=== PATIENT | female | born 1965 | race Caucasian/White ===

== ENCOUNTER 2017-09-22 18:12 | Emergency (ER) | payer BC ==
[2017-09-22] MEDS ORDERED: NS 0.9% 1000 ML* 1,000 ML IV ONE (20:13)
[2017-09-22 20:17] LABS: ABS Basophils 0.1 10^3/ul (0-0.2); ABS Eosinophils 0 10^3/ul (0-0.6); ABS Lymphocytes 1.1 10^3/ul (1.0-4.8); ABS Monocytes 1.4 10^3/ul (0-0.8); ABS Neutrophils 8.5 10^3/ul (1.5-7.7); ABS Nucleated RBC 0.1 10^3/ul; Eosinophil % 0.3 % (0-6); Hematocrit 44 % (35-47); Lymphocyte % 10.2 % (25-47); Mean Corpuscular HGB Conc 35 g/dl (31-36); Mean Corpuscular Hemoglobin 27 pg (27-31); Mean Corpuscular Volume 79 fL (80-97); Mean Platelet Volume 7.2 um3 (7.4-10.4); Nucleated Red Blood Cells % 0.5; Platelet Count 232 10^3/ul (150-450); Red Blood Count 5.48 10^6/ul (4.00-5.40); Red Cell Distribution Width 17 % (10.5-15); White Blood Count 11.1 10^3/ul (3.5-10.8)
--- NOTE | 2017-09-22 20:28 | ED ---
GI/ HPI - HPI Summary HPI Summary: 52-year-old female with diarrhea for the past 3 days. She denies any bowel pain. He states he has loose watery stool. Denies any blood in the stools. No recent antibiotic use. No nausea and no vomiting. No history of diverticulitis. No one else sick. She did not eat anything different. She admits to fevers. She took some Tylenol at urgent care. Never had this before. No recent travel or exposures to contaminated water. No pain with urination. No frequency urgency. She admits to decreased appetite. She has no medical conditions. She has had her gallbladder removed. - History of Current Complaint Chief Complaint: EDGeneral Time Seen by Provider: 09/22/17 20:12 Stated Complaint: DIARRHEA/FEVER Pain Intensity: 0 - Allergy/Home Medications Allergies/Adverse Reactions: Allergies Allergy/AdvReac Type Severity Reaction Status Date / Time Penicillins Allergy Shortness Verified 09/22/17 18:18 of Breath PMH/Surg Hx/FS Hx/Imm Hx Endocrine/Hematology History: Denies: Hx Anticoagulant Therapy Cardiovascular History: Denies: Hx Myocardial Infarction Infectious Disease History: No Infectious Disease History: Denies: Traveled Outside the [place] in Last 30 Days - Family History Known Family History: Positive: Other - no fam hx of GI - Social History Alcohol Use: Occasionally Substance Use Type: Reports: None Review of Systems Negative: Fever Negative: Chest Pain Negative: Shortness Of Breath Positive: Diarrhea. Negative: Abdominal Pain, Vomiting, Nausea All Other Systems Reviewed And Are Negative: Yes Physical Exam Triage Information Reviewed: Yes Vital Signs On Initial Exam: Initial Vitals Temp Pulse Resp BP Pulse Ox 100.1 F 103 18 148/76 94 09/22/17 18:14 09/22/17 18:14 09/22/17 18:14 09/22/17 18:14 09/22/17 18:14 Vital Signs Reviewed: Yes Appearance: Positive: Well-Appearing Skin: Positive: Warm, Dry Head/Face: Positive: Normal Head/Face Inspection Eyes: Positive: Normal, Conjunctiva Clear ENT: Positive: Pharynx normal Respiratory/Lung Sounds: Positive: Clear to Auscultation, Breath Sounds Present Cardiovascular: Positive: Normal, RRR Abdomen Description: Positive: Nontender, Soft Bowel Sounds: Positive: Present Musculoskeletal: Positive: Normal Neurological: Positive: Normal Psychiatric: Positive: Normal Diagnostics - Vital Signs Vital Signs Temp Pulse Resp BP Pulse Ox 09/22/17 18:14 100.1 F 103 18 148/76 94 - Laboratory Lab Results: Lab Results 09/22/17 Range/Units 20:06 WBC 11.1 H (3.5-10.8) 10^3/ul RBC 5.48 H (4.00-5.40) 10^6/ul Hgb 15.0 (12.0-16.0) g/dl Hct 44 (35-47) % MCV 79 L (80-97) fL MCH 27 (27-31) pg MCHC 35 (31-36) g/dl RDW 17 H (10.5-15) % Plt Count 232 (150-450) 10^3/ul MPV 7.2 L (7.4-10.4) um3 Neut % (Auto) 76.8 (38-83) % Lymph % (Auto) 10.2 L (25-47) % Cochran % (Auto) 12.2 H (0-7) % Eos % (Auto) 0.3 (0-6) % Baso % (Auto) 0.5 (0-2) % Absolute Neuts (auto) 8.5 H (1.5-7.7) 10^3/ul Absolute Lymphs (auto) 1.1 (1.0-4.8) 10^3/ul Absolute Monos (auto) 1.4 H (0-0.8) 10^3/ul Absolute Eos (auto) 0 (0-0.6) 10^3/ul Absolute Basos (auto) 0.1 (0-0.2) 10^3/ul Absolute Nucleated RBC 0.1 10^3/ul Nucleated RBC % 0.5 Result Diagrams: 09/22/17 20:06 09/22/17 20:06 Lab Statement: Any lab studies that have been ordered have been reviewed, and results considered in the medical decision making process. - CT abd CT Interpretation: Positive (See Comments) - thickened cecum with mild surrounding inflammatory changes could represent colitis however mass cannot be excluded follow-up recommended CT Interpretation Completed By: Radiologist JANA Course/Dx - Course Course Of Treatment: 52-year-old female with diarrhea for the past 3 days. She denies any bowel pain. He states he has loose watery stool. Denies any blood in the stools. No recent antibiotic use. No nausea and no vomiting. No history of diverticulitis. No one else sick. She did not eat anything different. She admits to fevers. She took some Tylenol at urgent care. Never had this before. No recent travel or exposures to contaminated water. No pain with urination. No frequency urgency. She admits to decreased appetite. She has no medical conditions. She has had her gallbladder removed. On exam abdomen soft nontender. wbc 11.1. potassium 3.2. crp elevated at 119.57. urine shows uti. CT shows thickened cecum with mild surrounding inflammatory changes could represent colitis however mass cannot be excluded follow-up recommended. With white blood cell count will treat as a colitis with Flagyl and cipro which will also cover for potential uti. Will give follow-up with GI and stressed importance of follow up. Patient understands agrees with plan. - Diagnoses Differential Diagnoses - Female: Colitis, Diverticulitis, Urinary Tract Infection Provider Diagnoses: Colitis, UTI (urinary tract infection) Discharge - Sign-Out/Discharge Documenting (check all that apply): Patient Departure - Discharge Plan Condition: Good Disposition: HOME Prescriptions: Ciprofloxacin TAB* [Cipro 500 MG TAB*] 500 mg PO BID #19 tab metroNIDAZOLE [Flagyl 500 MG TAB] 500 mg PO TID #29 tab Patient Education Materials: Colitis (ED) Referrals: [facility] [Outside] Mannie Singh MD [Medical Doctor] - Additional Instructions: Take ciprofloxacin twice a day for 10 days, first dose given in ED Take Flagyl every 8 hours for 10 days, first dose given in ED Follow up with GI Establish care with primary Return to ED if develop any new or worsening symptoms - Billing Disposition and Condition Condition: GOOD Disposition: Home
[2017-09-22 20:31] LABS: EGFR Non-African American 104.2 (>60)
[2017-09-22 21:27] LABS: Urine Appearance Clear; Urine Blood Negative (Negative); Urine Color Yellow; Urine Ketones 1+ (Negative); Urine Protein Negative (Negative); Urine Red Blood Cell Trace(0-2/hpf) (Absent); Urine Urobilinogen Negative (Negative); Urine White Blood Cell Trace(0-5/hpf) (Absent)
[2017-09-22] MEDS ORDERED: Iohexol 300* (CONTRAST) 10 ML SDV IV ONE (21:32)
[2017-09-23] MEDS ORDERED: Ciprofloxacin TAB* 500 MG PO ONE (00:14)
[2017-09-23] MEDS ORDERED: metroNIDAZOLE TAB* 250 MG PO ONE (00:14)
[2017-09-23 00:40] VITALS: BP 121/74
--- NOTE | 2017-09-23 07:40 | RAD ---
Indication: Abdominal pain, diarrhea. Contrast: Administered 144.2 ml of Contrast -- mg/ml CT of the abdomen and pelvis was performed after oral and IV contrast administration. Coronal and sagittal reconstructed images were obtained. The lung bases demonstrate no pleural fluid, nodules or masses. Heart is of normal size without evidence of pericardial effusion. The liver is normal in size. No focal lesions or intrahepatic duct dilatation is noted. The spleen is normal in size. The pancreas demonstrates no mass or pancreatic duct dilatation. The common duct is not dilated. Patient is status post cholecystectomy. The left adrenal gland demonstrates a nodule in the left adrenal gland measuring 1.5 cm. The small size of this lesion suggests that this likely represents an adenoma although nonspecific on this study. The kidneys and ureters demonstrate no hydronephrosis. There is a subcentimeter cortical cyst in the upper pole of the left kidney. No retroperitoneal lymphadenopathy is noted. No retroperitoneal lymphadenopathy is noted. No dilated loops of bowel are noted. CT of the pelvis demonstrates uterus and ovaries to be unremarkable. The urinary bladder is unremarkable. The uterus and ovaries are grossly unremarkable. There is wall thickening of the distal ileum with thickened mucosa of the ascending colon up to the hepatic flexure. There is there is some induration of pericolonic fat as well as some mesenteric lymph nodes. This likely represents colitis and follow-up exam is suggested. The appendix is visualized and is normal. The bones and joints are grossly unremarkable aside from mild degenerative disc disease. IMPRESSION: Underlying mucosal thickening of the hepatic flexure and ascending colon suggestive of colitis. A small amount of pericolonic infiltration of fat and inflammatory changes as well as mesenteric lymph nodes are noted. Normal appendix is noted. Left adrenal nodule measuring up to 1.5 cm which is nonspecific. Due to size is likely represents an adenoma further workup if clinically indicated is suggested.
== END 2017-09-23 00:39 | disposition home or self-care (01) ==
LOC: ED 18:12
DX: K52.9 Noninfective gastroenteritis and colitis, unspecified (principal); N39.0 Urinary tract infection, site not specified; Z88.0 Allergy status to penicillin
CPT/HCPCS: 36415; 74177; 80053; 81003; 81015; 83605; 83690; 85025; 86140; 87040; 87086; 96360; 96361; 99283; A9270-GY; Q9967

== ENCOUNTER 2019-03-27 12:48 | Inpatient (IN) | payer BC ==
[2019-03-27] MEDS ORDERED: diPHENhydraMINE IV* 50 MG/ML 1 ml VIAL (BENADRYL) IV ONE (13:34)
[2019-03-27] MEDS ORDERED: NS 0.9% 1000 ML** 1,000 ML IV ONE (13:34)
[2019-03-27] MEDS ORDERED: PROCHLORPERAZINE INJ 5 MG/ML 2 ML VIAL IV ONE (13:35)
--- NOTE | 2019-03-27 13:36 | ED ---
Headache - HPI Summary HPI Summary: 53 y/o female presented to [facility] complaining of a ANGEL in the occipital region that woke her up while she was sleeping on the night of 03/25/19. Pt notes this ANGEL is abnormal. The pain was at its worst initially but has since improved. Pt is experiencing vision changes in which she sees "blocks" and colors, and feels like she is spinning upon moving her head. She is also having issues with depth perception intermittently. Pt enodrses balance issues due to her vision, but can stand normally and denies numbness, tingling, photophobia, sound sensitivity , and neck stiffness. She took Mucinex recently. Pt has no known Hx of HTN and is on no medications, and notes that she does not regularly see a doctor. Pt also notes her aunt had a brain aneurysm. Allergies noted. - History Of Current Complaint Chief Complaint: EDHeadache Stated Complaint: HEADACHE PER PT Time Seen by Provider: 03/27/19 13:21 Hx Obtained From: Patient, Family/Food Sanitarian - Initially Headache Was: Severe Currently Pain Is: Current Pain Scale(0-10)= - 2 Timing: Constant Location of Headache: Occipital Aggravating Factor: Nothing Allevating Factors: Nothing Associated Signs And Symptoms: Other (Noted In Comments) - vision changes (see HPI), issues with depth perception, balance issues - Allergies/Home Medications Allergies/Adverse Reactions: Allergies Allergy/AdvReac Type Severity Reaction Status Date / Time Penicillins Allergy Shortness Verified 03/27/19 16:23 of Breath PMH/Surg Hx/FS Hx/Imm Hx Endocrine/Hematology History: Denies: Hx Anticoagulant Therapy, Hx Diabetes Cardiovascular History: Denies: Hx Hypertension, Hx Myocardial Infarction - Surgical History Surgery Procedure, Year, and Place: CHOLECYSTECTOMY - Immunization History Immunizations Up to Date: Yes Infectious Disease History: No Infectious Disease History: Denies: Traveled Outside the [place] in Last 30 Days - Family History Known Family History: Positive: Other - no fam hx of GI - Social History Alcohol Use: None Substance Use Type: Reports: None Smoking Status (MU): Never Smoked Tobacco Review of Systems Negative: Photophobia Positive: Other - negative sensitivity to sound Positive: Other - negative neck stiffness Neurological: Other - vision changes, see HPI Positive: Headache. Negative: Paresthesia, Numbness All Other Systems Reviewed And Are Negative: Yes Physical Exam - Summary Physical Exam Summary: Constitutional: Well-developed, Well-nourished, Alert. (-) Distressed Skin: Warm, Dry HENT: Normocephalic; Atraumatic Eyes: Conjunctiva normal Neck: Musculoskeletal ROM normal neck. (-) JVD, (-) Stridor, (-) Tracheal deviation Cardio: Rhythm regular, rate normal, Heart sounds normal; Intact distal pulses. Radial pulses are 2+ and symmetric. (-) Murmur Pulmonary/Chest wall: Effort normal. (-) Respiratory distress, (-) Wheezes, (-) Rales Abd: Soft. (-) Tenderness, (-) Distension, (-) Guarding, (-) Rebound Musculoskeletal: (-) Edema Lymph: (-) Cervical adenopathy Neuro: Alert, Oriented x3, Strength normal, Cranial nerves II-XII are grossly intact. (-) Dysmetria, (-) Nystagmus, (-) Ataxia by finger to nose testing, (-) Sensory deficit. LLQ visual field deficit. NIH scale 1. GCS 15. Psych: Mood and affect Normal Triage Information Reviewed: Yes Vital Signs On Initial Exam: Initial Vitals Temp Pulse Resp BP Pulse Ox 97.3 F 97 18 170/96 100 03/27/19 12:50 03/27/19 12:50 03/27/19 12:50 03/27/19 12:50 03/27/19 12:50 Vital Signs Reviewed: Yes Procedures - Sedation Patient Received Moderate/Deep Sedation with Procedure: No Diagnostics - Vital Signs Vital Signs Temp Pulse Resp BP Pulse Ox 03/27/19 12:50 97.3 F 97 18 170/96 100 - Laboratory Result Diagrams: 03/27/19 13:50 03/27/19 13:50 Lab Statement: Any lab studies that have been ordered have been reviewed, and results considered in the medical decision making process. - Radiology cxr Radiology Interpretation Completed By: Radiologist Summary of Radiographic Findings: IMPRESSION: No acute cardiopulmonary process by radiograph. The ED physician has reviewed this report. - CT head CT Interpretation Completed By: Radiologist Summary of CT Findings: IMPRESSION: 1. No acute intracranial abnormality by CT. 2. 1.3 x 0.9 cm calcified meningioma versus dural calcification along the anterior falx. cerebri. Could be further characterized by brain MRI with contrast on an elective basis. This report was reviewed by the ED physician. Re-Evaluation - Re-Evaluation First Eval Re-Evaluation Time: 15:06 Comment: ANGEL is gone and visual field defect has improved. Headache Course/Dx - Course Course Of Treatment: Patient is here with headache and visual symptoms. Patient has no diagnosed medical problems but does not go to the doctor regularly. Patient was found to have a glucose in the 300s and likely has undiagnosed diabetes. Patient had bilateral left lower quadrant visual field defects upon arrival. Patient had a CT scan which showed a small meningioma at the anterior falx cerebri. Patient was given IV fluids, comes in, Benadryl with improvement in her headache and resolution of her visual field defect. Neurology was called and they're concerned about TIA. Patient was admitted to the hospitalist - Diagnoses Provider Diagnoses: TIA (transient ischemic attack), Headache, Visual field defect - Physician Notifications Discussed Care Of Patient With: Delfino Ba Time Discussed With Above Provider: 15:15 Instructed by Provider To: Other - Pt case was discussed with Dr. Ba, who recommends admission to [facility] and workup for TIA. At 1534 pt case was discussed with Dr. Hanson, who accepts the pt. Discharge ED - Sign-Out/Discharge Documenting (check all that apply): Patient Departure - admit - Discharge Plan Condition: Stable Disposition: ADMITTED TO [facility] - Billing Disposition and Condition Condition: STABLE Disposition: Admitted to [facility] - Attestation Statements Document Initiated by Prasad: Yes Documenting Scribe: Jeromy Matos Provider For Whom Prasad is Documenting (Include Credential): Madhu Willard MD Scribe Attestation: Jeromy Roth scribed for Madhu Willard MD on 03/27/19 at 1720. Scribe Documentation Reviewed: Yes Provider Attestation: The documentation as recorded by the Jreomy coello accurately reflects the service I personally performed and the decisions made by me, Madhu Willard MD Status of Scribe Document: Viewed
[2019-03-27 14:05] LABS: ABS Basophils 0.1 10^3/ul (0-0.2); ABS Eosinophils 0.1 10^3/ul (0-0.6); ABS Lymphocytes 1.4 10^3/ul (1.0-4.8); ABS Monocytes 0.7 10^3/ul (0-0.8); ABS Neutrophils 7.1 10^3/ul (1.5-7.7); Eosinophil % 0.7 %; Hematocrit 47 % (35-47); Hemoglobin 16.1 g/dL (12.0-16.0); Lymphocyte % 14.8 %; Mean Corpuscular HGB Conc 34 g/dL (31-36); Mean Corpuscular Hemoglobin 28 pg (27-31); Mean Corpuscular Volume 80 fL (80-97); Mean Platelet Volume 7.6 fL (7.4-10.4); Nucleated Red Blood Cells % 0.3; Platelet Count 240 10^3/uL (150-450); Red Blood Count 5.85 10^6 /uL (3.70-4.87); Red Cell Distribution Width 17 % (10-15); White Blood Count 9.2 10^3/uL (3.5-10.8)
[2019-03-27 14:21] LABS: Albumin 4.1 g/dL (3.2-5.2); Albumin/Globulin Ratio 1.4 (1-3); BUN/Creatinine Ratio 17.2 (8-20); Calcium 8.9 mg/dL (8.6-10.3); EGFR African American 130.6 (>60); EGFR Non-African American 107.9 (>60); Potassium 3.6 mmol/L (3.5-5.0); Total Bilirubin 0.7 mg/dL (0.2-1.0); Total Protein 7.1 g/dL (6.4-8.9)
[2019-03-27] MEDS ORDERED: Aspirin 81 mg CHEW TAB* 81 MG TAB.CHEW PO ONE (15:21)
[2019-03-27] MEDS ORDERED: Clopidogrel TAB* 75 MG PO ONE (15:21)
[2019-03-27] MEDS ORDERED: Iohexol 350* (CONTRAST) 500 ML MDV IV ONE (15:26)
[2019-03-27] MEDS ORDERED: Dextrose 50% Syringe 50 ML* 25 GM/50 ML SYRINGE IV PUSH PRN (15:39)
[2019-03-27 15:41] LABS: HDL Cholesterol 40.5 mg/dL
[2019-03-27] MEDS ORDERED: Ondansetron INJ* 2 MG/ML VIAL IV PRN (16:03)
[2019-03-27] MEDS ORDERED: Atorvastatin* 40 MG TAB PO ONE (16:18)
[2019-03-27 16:21] LABS: Erythrocyte Sed Rate 8 mm/Hr (0-29)
[2019-03-27] MEDS: Insulin LISPRO* 1 UNITS UNIT SUBCUT SCH (17:38)
[2019-03-27] MEDS: Enoxaparin(*) 40 MG/0.4 ML SYR SUBCUT SCH (17:39)
[2019-03-27] MEDS: Atorvastatin* 40 MG TAB PO SCH (17:42)
--- NOTE | 2019-03-27 17:47 | HP ---
ADMISSION HISTORY AND PHYSICAL: DATE OF ADMISSION: 03/27/19 - ROOM #441 PRIMARY CARE PROVIDER: None. PROVIDER: Samm Lorenzo NP. ATTENDING PHYSICIAN: Dr. Hanson.* (DICTATED BY SAMM LORENZO NP) OTHER PROVIDER: Dr. Ba. CHIEF COMPLAINT: Headache. HISTORY OF PRESENT ILLNESS: This is a 53-year-old female with no significant past medical history, who came to the emergency room on 03/27/19 for a several- day history of pain to the back of her head, which is described as intermittent dull ache. With the pain, she sees black floaters in both eyes and her depth of perception is off. Turning her head causes her to feel dizzy. All of these symptoms are resolved when her pain eases; however, coughing also makes the pain hurt worse. She also reports having slept in her recliner for the past few months because she becomes short of breath while lying flat. The patient has no seen a doctor in a number of years. The hospitalists were asked to evaluate the patient for admission. At the time of evaluation, the patient was uncomfortable in the bed. I assisted her with moving to a chair and the transfer did not cause her to become anymore dizzy or lightheaded. She was uncomfortable from having just recently received IV Benadryl, stating she felt loopy and uncomfortable. PAST MEDICAL HISTORY: Left adrenal adenoma, which was detected on a CT scan in 2018 ED visit. PAST SURGICAL HISTORY: Cholecystectomy in 1989. HOME MEDICATIONS: None. ALLERGIES: PENICILLIN. FAMILY HISTORY: Mother and brothers have diabetes type 2. Father had colon cancer. Aunt had an aneurysm. SOCIAL HISTORY: Denies any tobacco, EtOH, or recreational substance use. Does not work. Is and has no children. REVIEW OF SYSTEMS: It was positive for stress, frequent urination without burning or pressure. Denied any fever, chills, chest pain, edema, coughing, nausea, vomiting, diarrhea, or abdominal pain. It was positive for pain in the back of her head. Denied any current dizziness or alterations in depth perception. Denied any dysphagia, arthralgias, myalgias, rashes, or anxiety. PHYSICAL EXAMINATION GENERAL: This is a well-developed, obese woman seen sitting up in the chair, in mild distress. VITAL SIGNS: 97.3 Fahrenheit, 94 pulse, 100% oxygen on room air, 20 resps, 146/ 75 blood pressure. HEENT: Conjunctivae pink and moist. PERRLA. EOMs intact. Mucous membranes dry. Oropharynx clear. NECK: Supple. No cervical or supraclavicular lymphadenopathy noted. RESPIRATORY: Lung sounds clear throughout bilaterally, diminished in the bases on room air. No accessory muscle use noted. CARDIAC: S1, S2 present. Heart rate regular. No murmurs, gallops, or rubs appreciated. No carotid bruit. No lower extremity edema. ABDOMEN: Large, soft, nontender, nondistended with positive bowel sounds. MUSCULOSKELETAL: No clubbing or cyanosis of the digits. Full range of motion. NEURO: Tongue midline. Smile symmetrical. No focal deficits appreciated. Sensation intact to light touch. PSYCH: She is alert and oriented x3. No overt anxiety or depression noted. SKIN: No rashes or open areas appreciated. DIAGNOSTIC STUDIES/LAB DATA: Pertinent lab data: RBC 5.85, hemoglobin 16.1. Sodium 133, chloride 98, glucose 327. Hemoglobin A1c 12.1. Triglycerides are 195, cholesterol 176, LDL cholesterol 97, HDL cholesterol 40.5. Diagnostic studies: Chest x-ray showed no acute cardiopulmonary process. Brain CT showed no acute intracranial abnormality. Also showed a 1.3 x 0.9 cm calcified meningioma versus dural calcification along the anterior falx cerebri , could be either characterized by a brain MRI without contrast on an elective basis. Awaiting results of head CTA and brain MRI. ASSESSMENT AND PLAN: My impression is that this is a 53-year-old female with no previous past medical history, who came to the emergency room on 03/27/19 for headache, possible transient ischemic attack and newly diagnosed diabetes type 2, hypertension, hyperlipidemia. 1. Headaches. Due to the intermittent nature of the symptoms with the lack of any other accompanying neurological deficit corroborated by a negative CT scan, I doubt that the patient has had a stroke or a transient ischemic attack. Have Dr. Ba consulted. We are awaiting results of the head CTA and brain MRI. It is likely that her symptoms could be correlated to high blood pressure that has up until now been undiagnosed; however, until all imaging returns, I will allow for some permissive hypertension. The patient will receive aspirin and Plavix. She did receive a liter of fluid in the emergency room. 2. Diabetes type 2. Hemoglobin A1c was 12.1%. We will perform blood glucose monitoring a.c. with sliding scale lispro. Starting the patient on Lantus 10 units. Likely, we will need to titrate up as recommended starting dose target is 56 units. Will require repeated education. Recommend that she follow up with [facility] upon discharge and we recommend consulting Dr. Fitzgerald tomorrow. 3. Hypertension. Arrival blood pressures were about 170s systolically, which has decreased to 146/75 without any intervention. We will allow for permissive hypertension through tonight and start the patient on lisinopril 5 mg p.o. in the a.m. as it is kidney protective. 4. Hyperlipidemia. This is newly diagnosed upon this admission. Target LDL is below 70; however, she is at 97. Started her on 40 mg of atorvastatin. Educated her about the possibility of myalgias and to report them if they do arise. 5. DVT prophylaxis: Initiate Lovenox. 6. Code status is full code. 7. Disposition is to admit OBV to [address] [place] [address]. Condition is guarded. TIME SPENT: Time spent on the patient is about 60 minutes with half of that spent [id number]. Case was reviewed by my attending and they agree with the plan of care. SAMM LORENZO, KAMILA [id number]/CPS #: [id number] CELSO
[2019-03-27] MEDS ORDERED: Insulin GLARGINE(*) 1 UNITS UNIT SUBCUT SCH ×2 (21:00)
[2019-03-28 06:07] LABS: ABS Monocytes 0.6 10^3/ul (0-0.8); ABS Neutrophils 7.1 10^3/ul (1.5-7.7); Eosinophil % 0.5 %; Hematocrit 46 % (35-47); Hemoglobin 15.8 g/dL (12.0-16.0); Lymphocyte % 11.5 %; Mean Corpuscular HGB Conc 34 g/dL (31-36); Mean Corpuscular Hemoglobin 28 pg (27-31); Mean Corpuscular Volume 81 fL (80-97); Mean Platelet Volume 7.3 fL (7.4-10.4); Nucleated Red Blood Cells % 0.2; Platelet Count 231 10^3/uL (150-450); Red Blood Count 5.71 10^6 /uL (3.70-4.87); Red Cell Distribution Width 17 % (10-15); White Blood Count 8.8 10^3/uL (3.5-10.8)
[2019-03-28 06:27] LABS: Calcium 8.7 mg/dL (8.6-10.3); EGFR Non-African American 128.1 (>60); Potassium 3.8 mmol/L (3.5-5.0)
[2019-03-28] MEDS: Insulin LISPRO* 1 UNITS UNIT SUBCUT SCH ×3 (08:45→17:32)
[2019-03-28] MEDS: Aspirin 81 mg CHEW TAB* 81 MG TAB.CHEW PO SCH (08:45)
[2019-03-28] MEDS ORDERED: Lisinopril TAB* 5 MG PO SCH (09:00)
--- NOTE | 2019-03-28 10:57 | ECHO ---
*[facility]* [place] [address] Fax #: [phone] Transthoracic Echocardiogram Patient: Brittany Toussaint : 1965 Study Date: 03/28/2019 Age: 53 Gender: F HR: 99 bpm Height: 66 in /167.6 cm BSA: 2.2 m^2 Weight: 249.5 lb /113.4 kg BMI: 40.4 kg/m^2 *Ski Patrol Director: * Jossie Chen [facility] *Referring Physician: * Madhu Willard *Reading Physician: * He Jain MD Indications: TIA. History: Risk factors: Hypertension. Obese. Dyslipidemia. Conclusions Summary: - Left ventricle: Systolic function is normal. The estimated ejection fraction is 60-65%. Wall motion is normal; there are no regional wall motion abnormalities. - Atrial septum: A patent foramen ovale cannot be excluded. A PFO is not demonstrated by color Doppler. - Mitral valve: There is no significant regurgitation. - Tricuspid valve: There is no significant regurgitation. - Pericardium, extracardiac: There is no significant pericardial effusion. - Pulmonary arteries: Systolic pressure can not be accurately estimated. - Study data: No prior study is available for comparison. - Technical notes: 1.1 cm x 2.0 cm echodensity with anechoic rim measured in subcostal 4C view tapan in liver. [facility] imaging recommemded Study data: Transthoracic echocardiogram. Procedure: Transthoracic echocardiography was performed. Image quality was fair. The study was technically limited due to restricted patient mobility. A bubble study was performed. Complete 2D, spectral Doppler, and color flow Doppler. Location: Bedside. Patient status: Inpatient. Patient room number: 441-02. No prior study is available for comparison. Rhythm: Normal sinus rhythm. Findings Left ventricle: The cavity size is normal. Wall thickness is mildly increased. Systolic function is normal. The estimated ejection fraction is 60-65%. Wall motion is normal; there are no regional wall motion abnormalities. Doppler parameters are consistent with abnormal left ventricular relaxation (grade 1 diastolic dysfunction). Right ventricle: The cavity size is mildly to moderately dilated. Wall thickness is mildly increased. Systolic function is normal. Left atrium: The atrium is normal in size. Right atrium: The atrium is normal in size. Atrial septum: A patent foramen ovale cannot be excluded. Due to suboptimal 2D imaging. A PFO is not demonstrated by color Doppler. Bubble study images 95 and 96. Mitral valve: The leaflets are mildly thickened. There is no evidence of stenosis. There is no significant regurgitation. Aortic valve: The valve is trileaflet. The leaflets are normal thickness. There is no evidence of stenosis. There is no significant regurgitation. Tricuspid valve: The leaflets are normal thickness. There is no evidence of stenosis. There is no significant regurgitation. Pulmonic valve: Not well visualized. The leaflets are normal thickness. There is no evidence of stenosis. There is no significant regurgitation. Aorta: Aortic root: The aortic root is appears normal. Ascending aorta: The ascending aorta is appears normal. Aortic arch: The aortic arch is appears normal. Pericardium: A prominent pericardial fat pad is present. There is no significant pericardial effusion. Pulmonary arteries: The main pulmonary artery is normal-sized. Systolic pressure can not be accurately estimated. Systemic veins: Inferior vena cava: The vessel is normal in size. There is (< 50%) respiratory change in the IVC dimension. Measurements Left ventricle Value Ref Right atrium continued Value Ref JULIO, LAX 4.0 cm 3.8 - 5.2 ML dim, ES, A4C 3.2 cm 2.6 - 4.4 ESD, LAX 2.3 cm 2.2 - 3.5 Estimated RAP 8 mm Hg --------- FS, LAX 42 % 27 - 45 PW, ED, LAX (H) 1.1 cm 0.6 - 0.9 Aortic valve Value Ref FS 42 % 27 - 45 Felipe diam, ED 2.1 cm --------- PW, ED (H) 1.1 cm 0.6 - 0.9 Peak v, S 1.23 m/sec --------- E', lat felipe, TDI (L) 6.3 cm/sec >=10.0 VTI, S 21.0 cm -- ------- E/e', lat felipe, 10 Mean grad, S 3.0 mm Hg ----- ---- TDI Peak grad, S 6.0 mm Hg --------- E', med felipe, TDI 9.0 cm/sec >=7.0 LVOT/AV, VTI ratio 0.9 -- ------- E/e', med felipe, 7 TDI Mitral valve Value Ref E', avg, TDI 7.7 cm/sec Peak E 0.64 m/sec ----- ---- E/e', avg, TDI 8 <=14 Peak A 0.78 m/sec -- ------- Decel time 232 ms --------- LVOT Value Ref Peak E/A ratio 0.8 --------- Peak mayela, S 1.02 m/sec VTI, S 19.0 cm Pulmonic valve Value Ref Mean grad, S 3 mm Hg Peak v, S 1.32 m/sec --------- Peak grad, S 7.0 mm Hg --------- Ventricular septum Value Ref IVS, ED (H) 1.1 cm 0.6 - 0.9 Aortic root Value Ref Root diam 3.3 cm <4.3 Right ventricle Value Ref AW thickness, ED (H) 0.6 cm 0.1 - 0.5 Ascending aorta Value Ref JULIO, LAX 3.2 cm AAo AP diam, S 3.1 cm --------- JULIO minor ax, (H) 4.1 cm 1.9 - 3.5 A4C mid Aortic arch Value Ref Arch diam 3.1 cm --------- Left atrium Value Ref AP dim, ES 3.20 cm 2.70 - Decending aorta Value Ref 3.80 Reinaldo peak mayela 0.84 m/sec --------- ML dim, A4C 3.6 cm SI dim, A4C 4.7 cm Inferior vena cava Value Ref Vol/bsa, ES, 1-p 18 ml/m^2 11 - 40 Diam 1.7 cm --------- A4C Vol/bsa, ES, A/L 25 ml/m^2 16 - 34 Right atrium Value Ref SI dim, ES 4.7 cm 3.4 - 5.3 Legend: (L) and (H) isaac values outside specified reference range. Prepared and electronically signed by He Jain MD 03/28/2019 10:57
[2019-03-28 13:16] LABS: C Reactive Protein 18.68 mg/L (<8.01)
[2019-03-28 14:56] LABS: Erythrocyte Sed Rate 8 mm/Hr (0-29)
--- NOTE | 2019-03-28 15:48 | CONS ---
CONSULTATION REPORT: DATE OF ADMISSION: 03/28/19 DATE OF CONSULT: PRIMARY CARE PROVIDER: None. ATTENDING PHYSICIAN WHILE IN THE HOSPITAL: Dr. Saurav Mir (report dictated by Yogesh Kaur NP). REASON FOR NEUROLOGICAL CONSULTATION: Evaluation of headaches. HISTORY OF PRESENT ILLNESS: Ms. Toussaint is a 53-year-old female patient with no previous past medical history presenting into the hospital and admitted to the hospitalist service with complaints of a headache. She states that about 2 to 3 days ago, she developed a sudden onset of a headache that is not the worst of her life, but it started mostly behind the right eye and she noted that if she put ice on that, it would go away. However, she noted that if she laid flat , the headache was much worse. She noted that if she coughed or sneezed or cried, the head was worse. She denied any associated light or sound sensitivity and she noted that the headache was intermittent in nature and it was described as a dull ache. She states that the headache was not getting any better and she was concerned. She also notes that more concerning was the fact that she was having trouble with depth perception. She notes that she would try to reach for something and would often reach beyond it, such as a cup or reaching for a hand towel. She noted that on Thursday night and was concerned because of these symptoms and the fact that she was having trouble with her vision, in the sense that she was seeing what she described as a spinning spot, sometimes centrally in her vision. She noted that at times things would be distorted in her vision, not double, but she described it as distortion and did not describe loss of vision and she is unsure if this was in one eye or in both eyes. She says that she does not really have a history of headaches, no history of migraines. She notes that the headaches at times will last up to several hours. She denied having any autonomic features with the headaches such as congestion, nasal congestion, or tearing through the same side as the headache. She denied having any trouble finding words. No weakness to the arm or face. No facial drooping. No weakness to the leg, and she said that she felt like things in the room where she was sitting would be moving because of her vision. She denied feeling dizzy or lightheaded. She was concerned because she was having headaches, which she normally does not have and also was concerned because of the trouble with depth perception. She notes by the time that she went to the ER the headache was gone, but she was still having significant trouble with depth perception. She went to the ER, was evaluated, there was concern given her symptoms and she was admitted to the hospitalist service and we were asked to evaluate and consult. PAST MEDICAL HISTORY: Past medical history was denied to me. PAST SURGICAL HISTORY: She has had a cholecystectomy laparoscopically. MEDICATIONS: Her home medications were denied. ALLERGIES: To medications include PENICILLIN. FAMILY HISTORY: Her mother was diabetic. Father had a history of colon cancer. There was a history of a brain tumor as well in her father. SOCIAL HISTORY: She does not smoke. She does not drink. She is . Surrogate decision maker is her . REVIEW OF SYSTEMS: There is no documented fever. She denied having any significant weight change. No double vision was reported. No ear discharge. No rhinorrhea. No sore throat. No thyroid enlargement. She denied having any chest pain. No nausea, no vomiting. No dysuria, no frequency. No seizure, no loss of conscious. Review of 14 systems completed, all others negative. PHYSICAL EXAM: Vital Signs: Blood pressure 150/77 with a pulse of 98, respirations 16, O2 saturation 95%, temperature 97.9. General: At this time, Ms. Toussaint is a 53-year-old female patient. She is sitting in the hospital recliner. She does not appear to be in any acute distress. HEENT: Head: Atraumatic and normocephalic. Eyes: EOMs are intact. Sclerae were anicteric and not pale. Neck was supple. Throat: Oral mucosa appeared to be moist. No oropharyngeal erythema. Heart: Sounds S1 and S2, regular rate and rhythm. No murmurs, rubs, or gallops. Lungs: Clear to auscultation bilaterally. No wheezes, rales, or rhonchi. Abdomen: Soft, flat, nontender. Bowel sounds are present. Extremities: She had no edema, no clubbing. Psych: Normal affect. Skin: Grossly intact with no lesions noted. Neurologic: She is awake, alert. She is oriented to place, time, and person. She is interactive. Normal affect. Her speech is fluent without paraphasic error. No dysarthria noted. Repetition intact. Cranial nerve I not tested. II and III: Pupils were equal and reactive to light. Visual lemos were intact by full confrontation. EOMs were intact without nystagmus. I did not appreciate any ptosis. I did not appreciate any gross papilledema. Cranial nerve V: Sensation was intact to light touch. She had good strength bilaterally. Cranial nerve VII: Face symmetric without weakness. Cranial nerve VIII: Hearing grossly intact to finger rub. Cranial nerves IX and X: Voice normal. Palate elevates symmetrically. Cranial nerve XI: She had 5/5 strength at the trapezius muscles bilaterally. Cranial XII: Tongue protrudes midline. No atrophy or fasciculations. On motor exam, she had good tone, normal bulk. No rigidity, no pronator drift was noted. She had 5/5 strength in the distal and proximal extremities, upper and lower. Coordination: Rapid alternative movements were intact. She did hand closing bilaterally which was good. Finger to nose was intact. There was some concern of dysmetria; however, on my exam, I did not appreciate this. Heel to benavides was intact as well. I did not appreciate any tremors noted. Reflexes were noted to be down throughout. Babinski was equivocal. Sensation was intact to light touch in all extremities. Her gait was slightly wide based. Romberg was negative. DIAGNOSTIC STUDIES/LAB DATA: Labs revealed WBC 8.8, RBC of 5.71, hemoglobin of 15.8, hematocrit of 46, platelet count 231. INR 1. Sodium 136, potassium 3.8, chloride 102, bicarb 26, BUN 6, creatinine of 0.5, glucose 276, A1c 12.1, calcium 8.7. AST 18, ALT 28, alk phos 91. BNP 30. Albumin is 4.1. LDL was 97. 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 There was no restricted diffusion to suggest acute infarct. Chest x-ray showed no acute cardiopulmonary process. Thoracic echo showed left ventricular systolic function of 60% to 65%. A PFO could not be excluded. A PFO was not demonstrated by color Doppler. 1.1 cm x 2 cm echodensity within an echo rim measured in the subcostal 4 C view, likely in liver, further imaging recommended. She did have a CTA of the head which revealed impression: No acute intracranial abnormality. No acute occlusive disease, severe stenosis or aneurysm of the head. No occlusive disease or severe stenosis of the neck. Anatomic variants as above. Atherosclerotic disease. She had a brain CT as well which revealed no acute intracranial abnormality, 1.3 x 0.9 calcified meningioma versus dural calcification along the anterior falx cerebri. It could be further characterized by brain MRI with contrast on an elective basis. Old medical records were reviewed. ASSESSMENT AND PLAN/RECOMMENDATIONS: A 53--year-old female patient coming in with complaints of a headache that was sudden in onset over the last 3 days intermittently. She came in last night because of having difficulty with depth perception. My recommendations at this point are: 1. Headache. I would recommend checking an ESR and CRP. I do note that the ESR was 8. I would check a CRP. In addition to this, I would recommend checking an MRV of the head. I did not appreciate any difficulties with dysmetria on exam when I evaluated her. I would like to rule out venous thrombus. I do not suspect that this is a migraine in nature. Etiology of the headache and her symptoms are unclear. I do note that on exam her tympanic membrane on the left side appear to be cloudy in nature. Could consider having ENT further evaluate. This certainly could contribute to some balance issues, but she is really not complaining of this at this point. I do not believe that she had a stroke at this point given the negative MRI. I would obtain MRV going forward and will have Dr. Mir also evaluate the patient as well. Her headache is now gone, and again on exam, her depth perception was improved. We will make further recommendations based on imaging and labs. 2. Diabetes. Defer management to primary team. 3. Elevated blood pressure. Defer management to primary team. 4. DVT prophylaxis. Defer to primary team. TIME SPENT: Time spent on the consult was 60 minutes, greater than half of the time spent [id number] with the patient obtaining my history and physical, other half of that time was spent going over plan of care with the patient and implementing plan of care. I did discuss the plan of care with Dr. Mir, who is in agreement. YOGESH KAUR, DIRECTOR OF COMMUNITY EDUCATION [id number]/[facility] #: [id number] CELSO
[2019-03-28] MEDS ORDERED: Atorvastatin* 40 MG TAB PO SCH (17:00)
--- NOTE | 2019-03-28 17:03 | PN ---
Subjective Date of Service: 03/28/19 Interval History: ANGEL improved but still having fleeting episodes of changes in vision described as "floating bright blocks" Feels sinus congestion No N/V, spinning No CP/SOB Objective Active Medications: Acetaminophen (Tylenol Tab*) 650 mg PO Q4H PRN PRN Reason: MILD PAIN or TEMP > 100.4 Aspirin (Aspirin 81 Mg Chew Tab*) 81 mg PO DAILY [facility] Last Admin: 03/28/19 08:45 Dose: 81 mg Atorvastatin Calcium (Lipitor*) 40 mg PO 1700 [facility] Last Admin: 03/27/19 17:42 Dose: Not Given Dextrose (D50w Syringe 50 Ml*) 12.5 gm IV PUSH .FOR FS < 60 - SS PRN PRN Reason: FS < 60 Enoxaparin Sodium (Lovenox(*)) 40 mg SUBCUT Q24H [facility] Last Admin: 03/27/19 17:39 Dose: 40 mg Insulin Glargine (Lantus(*)) 14 units SUBCUT Q24H [facility] Insulin Human Lispro (Humalog*) 0 units SUBCUT AC [facility]; Protocol Last Admin: 03/28/19 12:12 Dose: 2 units Lisinopril (Prinivil Tab*) 5 mg PO DAILY [facility] Last Admin: 03/28/19 08:45 Dose: 5 mg Metformin HCl (Glucophage*) 500 mg PO 0800,1700 [facility] Ondansetron HCl (Zofran Inj*) 4 mg IV Q4H PRN PRN Reason: NAUSEA/VOMITING Vital Signs - 8 hr 03/28/19 03/28/19 11:15 15:15 Temperature 97.9 F 98.6 F Pulse Rate 98 95 Respiratory 16 16 Rate Blood Pressure 150/77 145/79 (mmHg) O2 Sat by Pulse 95 95 Oximetry Oxygen Devices in Use Now: None Appearance: NAD Eyes: No Scleral Icterus, PERRLA Ears/Nose/Mouth/Throat: NL Teeth, Lips, Gums, Clear Oropharnyx, Mucous Membranes Moist, - - right ear has some exoriations but TM intact Respiratory: Symmetrical Chest Expansion and Respiratory Effort, Clear to Auscultation Cardiovascular: RRR Abdominal: NL Sounds; No Tenderness; No Distention, No Hepatosplenomegaly Lymphatic: No Cervical Adenopathy Extremities: No Edema Skin: No Rash or Ulcers Neurological: Alert and Oriented x 3, - - strength 5/5 throughout, cn 2-12 intact, finger nose finger grossly off with left hand, no drift, gait not assessed Result Diagrams: 03/28/19 05:49 03/28/19 05:49 Assess/Plan/Problems-Billing Assessment: 53 yo F no known past medical history with poor outpatient contact with medical profession pw new HAs, visual changes found with newly diagnosed HTN, HLD and DM2 - Patient Problems (1) Headache Comment: appreciate neurology c/s MRI and MRV brain wnl sinus congestion with associated vertigo on differential add flonase (2) Visual changes Comment: unclear etiology negative head imaging reassuring small extra axial mass noted monitor now that HAs improved (3) Hypertension Comment: increase lisinopril from 5 to 10mg daily starting tomorrow (4) Diabetes Comment: add metformin 500 BID increase lantus from 10 to 14 in bahman evening starting tonight c/w lispro SS endocrine c/s if available (5) Hyperlipidemia Comment: 26% 10 yr risk 40 mg lipitor started (6) DVT prophylaxis Comment: lovenox
[2019-03-28] MEDS: Atorvastatin* 40 MG TAB PO SCH (17:32)
[2019-03-28] MEDS: Enoxaparin(*) 40 MG/0.4 ML SYR SUBCUT SCH (17:32)
[2019-03-28] MEDS: metFORMIN* 500 MG TAB PO SCH (17:32)
[2019-03-28] MEDS: Fluticasone NASAL SPRAY 50MCG* 16 gm SPRAY BTL BOTH NARES SCH (17:38)
[2019-03-28] MEDS: Acetaminophen TAB* 325 MG PO PRN (17:51)
[2019-03-28] MEDS ORDERED: Insulin GLARGINE(*) 1 UNITS UNIT SUBCUT SCH (21:00)
[2019-03-29] MEDS: Acetaminophen TAB* 325 MG PO PRN ×2 (02:30→15:13)
[2019-03-29] MEDS ORDERED: Meclizine TAB* 12.5 MG PO PRN (08:09)
--- NOTE | 2019-03-29 08:39 | PN ---
Subjective Date of Service: 03/29/19 Interval History: Pt examined today at the bedside. She states that she is having trouble again today with depth perception. She feels that the floor is moving to her up to here yes. She states her had to help her with getting ready this morning in the bathroom. She notes she had a headache last night that was right sided and behind her head. She notes that the headache is gone today. She states that she does not feel dizzy. She states that she feels like things are moving in the room. ROS-denies fever, denies chills, denies chest pain, denies nausea, denies vomiting, denies lightheadedness, denies loc, review of 14 systems completed all others negative, Review of Systems: Denied CP, SOB, or palpitations. Objective Active Medications: Acetaminophen (Tylenol Tab*) 650 mg PO Q4H PRN PRN Reason: MILD PAIN or TEMP > 100.4 Last Admin: 03/29/19 02:30 Dose: 650 mg Aspirin (Aspirin 81 Mg Chew Tab*) 81 mg PO DAILY [facility] Last Admin: 03/28/19 08:45 Dose: 81 mg Atorvastatin Calcium (Lipitor*) 40 mg PO 1700 [facility] Last Admin: 03/28/19 17:32 Dose: 40 mg Dextrose (D50w Syringe 50 Ml*) 12.5 gm IV PUSH .FOR FS < 60 - SS PRN PRN Reason: FS < 60 Enoxaparin Sodium (Lovenox(*)) 40 mg SUBCUT Q24H [facility] Last Admin: 03/28/19 17:32 Dose: 40 mg Fluticasone Propionate (Flonase Nasal [place] 50mcg*) 2 spray BOTH NARES DAILY [facility] Last Admin: 03/28/19 17:38 Dose: Not Given Insulin Glargine (Lantus(*)) 14 units SUBCUT Q24H [facility] Last Admin: 03/28/19 20:49 Dose: 14 unit Insulin Human Lispro (Humalog*) 0 units SUBCUT AC [facility]; Protocol Last Admin: 03/28/19 17:32 Dose: 3 units Lisinopril (Prinivil Tab*) 10 mg PO DAILY [facility] Meclizine HCl (Antivert Tab*) 12.5 mg PO Q8HR PRN PRN Reason: DIZZINESS Metformin HCl (Glucophage*) 500 mg PO 0800,1700 [facility] Last Admin: 03/28/19 17:32 Dose: 500 mg Ondansetron HCl (Zofran Inj*) 4 mg IV Q4H PRN PRN Reason: NAUSEA/VOMITING Vital Signs 03/28/19 03/28/19 03/28/19 11:15 15:15 19:34 Temperature 97.9 F 98.6 F 97.9 F Pulse Rate 98 95 91 Respiratory 16 16 20 Rate Blood Pressure 150/77 145/79 151/80 (mmHg) O2 Sat by Pulse 95 95 90 Oximetry 03/28/19 03/29/19 23:58 03:23 Temperature 97.7 F 97.4 F Pulse Rate 89 85 Respiratory 16 22 Rate Blood Pressure 143/68 142/68 (mmHg) O2 Sat by Pulse 92 95 Oximetry Intake and Output Last 24 Hours 03/27/19 03/28/19 03/29/19 03/30/19 06:59 06:59 06:59 06:59 Intake Total 1000 860 Output Total 0 Balance 1000 860 Weight 245 lb 245 lb Intake: IV Fluids 1000 Oral 0 860 Output: Urine 0 Other: # Voids 1 Oxygen Devices in Use Now: None Neurology Exam: General: Well nourished, well developed, and in no acute distress HEENT: Normocephelic/atraumatic, sclera anicteric, mucous membranes moist Neck: Supple Chest: Clear to auscultation bilaterally Cardiovascular: Regular rate and rhythm without murmurs, rubs, gallops Abdomen: Soft, non-tender/non-distended Extremities: No clubbing, cyanosis, or edema Neurological Findings: Awake, alert, and oriented to person, place, and time. Speech: fluent without dysarthria, repetition intact Cranial Nerve: PERRL, EOM intact, VFF, nystagmus to left lateral gaze, face symmetric bilaterally, facial sensation intact, hearing intact to finger rub bilaterally, palate elevates symmetrically, tongue midline, SCM and Trapezius 5/ 5. Motor:5/5 throughout, proximal and distal extremities x4 tone/bulk normal Sensation: intact to LT bilaterally upper and lower extremities Deep Tendon Reflex: 1 plus symmetric in the upper/lower extremities, Babinski - down going Finger to nose abnormal she has some dsymetria noted to the left side, however heel to benavides intact to both sides, , rapid alternating movements intact without tremor, Gait: wide based, Romberg: minimal sway with eyes opened, moderate sway with eyes closed, Result Diagrams: 03/28/19 05:49 03/28/19 05:49 Assessment/Plan Assessment: 53 yo F no known past medical history with poor outpatient contact with medical profession presenting with new HAs, visual changes found with newly diagnosed HTN, HLD and DM2 Dizziness/visual changes -dsymetria noted on exam today -etiology unclear -MRI negative with exception of calcified meningioma -MRV negative -Cta negative no aneurysm noted, no stenosis -Left TM with cloudiness noted consider ENT referal -note some nystagus on lateral gaze left, ? vertigo -Meclizine added, would give this medication and see if she responds, if not would consider LP, -? if vertigo component, given the nystagmus, and reports of the room moving, -Flonase ordered primary team -PT recommended Headache -does not sound migrainous -etiology unclear -headache gone today, -negative head imaging reassuring -small extra axial mass noted -monitor now that HAs improved -consider LP if they return, -no papillaedema noted, DM, HTN HLD per primary team,
[2019-03-29] MEDS: metFORMIN* 500 MG TAB PO SCH (08:54)
[2019-03-29] MEDS: Insulin LISPRO* 1 UNITS UNIT SUBCUT SCH ×2 (08:54→13:05)
[2019-03-29] MEDS: Aspirin 81 mg CHEW TAB* 81 MG TAB.CHEW PO SCH (08:55)
[2019-03-29] MEDS: Fluticasone NASAL SPRAY 50MCG* 16 gm SPRAY BTL BOTH NARES SCH (08:55)
[2019-03-29 09:00] LABS: INR 1.06 (0.82-1.09)
[2019-03-29] MEDS ORDERED: Lisinopril TAB* 5 MG PO SCH (09:00)
[2019-03-29 09:45] LABS: ABS Eosinophils 0.1 10^3/ul (0-0.6); ABS Lymphocytes 1.1 10^3/ul (1.0-4.8); ABS Monocytes 0.6 10^3/ul (0-0.8); ABS Neutrophils 6.6 10^3/ul (1.5-7.7); Eosinophil % 0.8 %; Hematocrit 48 % (35-47); Hemoglobin 16.5 g/dL (12.0-16.0); Lymphocyte % 12.9 %; Mean Corpuscular HGB Conc 34 g/dL (31-36); Mean Corpuscular Hemoglobin 28 pg (27-31); Mean Corpuscular Volume 81 fL (80-97); Mean Platelet Volume 7.2 fL (7.4-10.4); Nucleated Red Blood Cells % 0.1; Platelet Count 244 10^3/uL (150-450); Red Blood Count 5.99 10^6 /uL (3.70-4.87); Red Cell Distribution Width 17 % (10-15); White Blood Count 8.3 10^3/uL (3.5-10.8)
[2019-03-29 13:23] VITALS: BP 131/76
--- NOTE | 2019-03-29 16:11 | CONSULT ---
Consult Consult: [facility] Inpatient Consult Note Date of Consult: diabetes, LEFT adrenal adenoma Reason for Consult: 03/29/19 Reason for Admission: headache ASSESSMENT: 53 yo F with incidental 1.5cm LEFT adrenal adenoma in 2018, now admitted for recent-onset headache, hypertension and hyperglycemia. Insulin- resistant T2DM is likely in this case. See recommendations below. I recommend that she also be screened for adrenal hormone secretion with 1mg overnight DST as outpatient, followed by plasma +/- 24h urine at endocrine follow-up visit. PLAN: - increase glargine insulin to 28 units at bedtime - start glipizide XL 5mg daily + metformin ER 750mg QHS at time of discharge - stop lispro insulin sliding scale at discharge - for overnight dexamethasone suppression as outpatient - prescribe dexamethasone 1mg tablet at discharge - check fasting AM cortisol the following day (done) - follow-up with endocrine in 2 weeks - will plan to check ACTH, cortisol renin, aldosterone and plasma metanephrine at follow-up visit - call [phone] with questions SUBJECTIVE: History of Present Illness: 53 yo F with acute headache symptoms, found to have hypertensive and hyperglycemia urgency. Headache is worsened with position, cough and lifting. No relieving factors, but occasional episodes of increased severity. A1c was 12.1% on admission with RBG >320mg/dL. She denies recent polyuria/polydipsia. Past Medical History: - adrenal incidentaloma Medications Prior to Admission: none Inpatient Medications: Acetaminophen (Tylenol Tab*) 650 mg PO Q4H PRN PRN Reason: MILD PAIN or TEMP > 100.4 Last Admin: 03/29/19 15:13 Dose: 650 mg Aspirin (Aspirin 81 Mg Chew Tab*) 81 mg PO DAILY [facility] Last Admin: 03/29/19 08:55 Dose: Not Given Atorvastatin Calcium (Lipitor*) 40 mg PO 1700 [facility] Last Admin: 03/28/19 17:32 Dose: 40 mg Dextrose (D50w Syringe 50 Ml*) 12.5 gm IV PUSH .FOR FS < 60 - SS PRN PRN Reason: FS < 60 Enoxaparin Sodium (Lovenox(*)) 40 mg SUBCUT Q24H [facility] Last Admin: 03/28/19 17:32 Dose: 40 mg Fluticasone Propionate (Flonase Nasal [place] 50mcg*) 2 spray BOTH NARES DAILY [facility] Last Admin: 03/29/19 08:55 Dose: 2 spray Insulin Glargine (Lantus(*)) 14 units SUBCUT Q24H [facility] Last Admin: 03/28/19 20:49 Dose: 14 unit Insulin Human Lispro (Humalog*) 0 units SUBCUT AC [facility]; Protocol Last Admin: 03/29/19 13:05 Dose: 3 units Lisinopril (Prinivil Tab*) 10 mg PO DAILY [facility] Last Admin: 03/29/19 08:54 Dose: 10 mg Meclizine HCl (Antivert Tab*) 12.5 mg PO Q8HR PRN PRN Reason: DIZZINESS Last Admin: 03/29/19 08:54 Dose: 12.5 mg Metformin HCl (Glucophage*) 500 mg PO 0800,1700 [facility] Last Admin: 03/29/19 08:54 Dose: 500 mg Ondansetron HCl (Zofran Inj*) 4 mg IV Q4H PRN PRN Reason: NAUSEA/VOMITING Allergies/Intolerances: PCN Social History: So alcohol, tobacco or drugs. Family History: Diabetes in mother. Colon and brain malignancies in father. Review of Systems: 12 system review is otherwise negative. OBJECTIVE: Temp Pulse Resp BP Pulse Ox 97.7 F 95 18 131/76 93 03/29/19 11:03 03/29/19 11:03 03/29/19 11:03 03/29/19 11:03 03/29/19 11:03 General: alert, pleasant, oriented, no distress ENT: neck supple, no thyromegaly, no bruit is heard Chest: CTAB, no wheezing or crackles CV: RRR, no murmur Abdomen: soft, non-tender Extremities: no edema, distal pulses intact Skin: warm, dry, no rash Neuro: grossly intact motor/sensory in extremities Psych: restricted affect, pleasant Labs: Glucose Results 03/29/19 07:30 253 03/29/19 11:30 192 WBC 8.3 10^3/uL (3.5-10.8) 03/29/19 09:37 RBC 5.99 10^6 /uL (3.70-4.87) H 03/29/19 09:37 Hgb 16.5 g/dL (12.0-16.0) H 03/29/19 09:37 Hct 48 % (35-47) H 03/29/19 09:37 MCV 81 fL (80-97) 03/29/19 09:37 MCH 28 pg (27-31) 03/29/19 09:37 MCHC 34 g/dL (31-36) 03/29/19 09:37 RDW 17 % (10-15) H 03/29/19 09:37 Plt Count 244 10^3/uL (150-450) 03/29/19 09:37 MPV 7.2 fL (7.4-10.4) L 03/29/19 09:37 Neut % (Auto) 78.9 % 03/29/19 09:37 Lymph % (Auto) 12.9 % 03/29/19 09:37 Edgar % (Auto) 7.1 % 03/29/19 09:37 Eos % (Auto) 0.8 % 03/29/19 09:37 Baso % (Auto) 0.3 % 03/29/19 09:37 Absolute Neuts (auto) 6.6 10^3/ul (1.5-7.7) 03/29/19 09:37 Absolute Lymphs (auto) 1.1 10^3/ul (1.0-4.8) 03/29/19 09:37 Absolute Monos (auto) 0.6 10^3/ul (0-0.8) 03/29/19 09:37 Absolute Eos (auto) 0.1 10^3/ul (0-0.6) 03/29/19 09:37 Absolute Basos (auto) 0.0 10^3/ul (0-0.2) 03/29/19 09:37 Absolute Nucleated RBC 0.0 10^3/ul 03/29/19 09:37 Nucleated RBC % 0.1 03/29/19 09:37 ESR 8 mm/Hr (0-29) 03/28/19 05:49 INR (Anticoag Therapy) 1.06 (0.82-1.09) 03/29/19 08:43 Sodium 136 mmol/L (135-145) 03/28/19 05:49 Potassium 3.8 mmol/L (3.5-5.0) 03/28/19 05:49 Chloride 102 mmol/L (101-111) 03/28/19 05:49 Carbon Dioxide 26 mmol/L (22-32) 03/28/19 05:49 Anion Gap 8 mmol/L (2-11) 03/28/19 05:49 BUN 6 mg/dL (6-24) 03/28/19 05:49 Creatinine 0.50 mg/dL (0.51-0.95) L 03/28/19 05:49 Est GFR ( Amer) 155.0 (>60) 03/28/19 05:49 Est GFR (Non-Af Amer) 128.1 (>60) 03/28/19 05:49 BUN/Creatinine Ratio 12.0 (8-20) 03/28/19 05:49 Glucose 276 mg/dL (70-100) H 03/28/19 05:49 POC Glucose (mg/dL) 192 mg/dL (70-100) H 03/29/19 11:55 Hemoglobin A1c 12.1 % (4.0-5.6) H 03/27/19 13:50 Calcium 8.7 mg/dL (8.6-10.3) 03/28/19 05:49 Total Bilirubin 0.70 mg/dL (0.2-1.0) 03/27/19 13:50 AST 18 U/L (13-39) 03/27/19 13:50 ALT 28 U/L (7-52) 03/27/19 13:50 Alkaline Phosphatase 91 U/L (34-104) 03/27/19 13:50 C-Reactive Protein 18.68 mg/L (<8.01) H 03/28/19 05:49 B-Natriuretic Peptide 30 pg/mL (<=100) 03/27/19 13:50 Total Protein 7.1 g/dL (6.4-8.9) 03/27/19 13:50 Albumin 4.1 g/dL (3.2-5.2) 03/27/19 13:50 Globulin 3.0 g/dL (2-4) 03/27/19 13:50 Albumin/Globulin Ratio 1.4 (1-3) 03/27/19 13:50 Triglycerides 195 mg/dL 03/27/19 13:50 Cholesterol 176 mg/dL 03/27/19 13:50 LDL Cholesterol 97 mg/dL 03/27/19 13:50 HDL Cholesterol 40.5 mg/dL 03/27/19 13:50
--- NOTE | 2019-03-29 16:21 | DS ---
CC: LINDA Lee, fax number [phone] * DISCHARGE SUMMARY: DATE OF ADMISSION: 03/27/19 DATE OF DISCHARGE: 03/29/19 DISPOSITION AT DISCHARGE: Home. CONDITION AT DISCHARGE: Good. PRIMARY DIAGNOSES: 1. Vertigo. 2. Newly diagnosed uncontrolled type 2 diabetes. 3. Newly diagnosed hypertension. 4. Newly diagnosed hyperlipidemia. MEDICATIONS ON DISCHARGE: Include: 1. Lisinopril 10 mg daily. 2. Glipizide 5 mg daily. 3. Metformin 750 mg at bedtime. 4. Meclizine 25 mg every 8 hours as needed. 5. Insulin glargine 28 units at bedtime. 6. Fluticasone 2 sprays both nares daily. 7. Atorvastatin 40 mg in the evening. 8. Aspirin 81 mg daily. 9. Acetaminophen 650 mg every 4 hours as needed for pain or fever. DIAGNOSTIC STUDIES/LAB DATA: Pertinent labs: ESR is 8, CRP 18. Hemoglobin A1c is 12.1. BUN 10, creatinine 0.58. Total cholesterol 176, triglycerides 195 , LDL is 97, HDL is 40. Pertinent imaging studies: MRV head is no venous sinus thrombosis or occlusion. 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 No restricted diffusion to suggest acute infarct. The aforementioned mass is 1.2 x 0.6 x 0.6 cm extraaxial lesion with minimal hyperostosis. Head CTA: No acute intracranial abnormality by CT. No occlusive disease, severe stenosis, or aneurysm in the head or neck. Transthoracic echocardiogram: Estimated LVEF is 60% to 65%. Wall motion is normal. There are no regional wall motion abnormalities. PFO cannot be ruled out. Functionally benign valves. Of note was a 1.1 cm x 2 cm echodense mass noted subcostally potentially in the liver. HISTORY OF PRESENT ILLNESS AND HOSPITAL COURSE: This is a 53-year-old female with past medical history as outlined in the history of presenting illness largely consisting of a patient with minimal contact with the healthcare system , presented to the hospital with new-onset headaches associated with visual disturbances described as blocks floating around in her vision. She had numerous imaging modalities of her brain including an MRI of her brain and MRV of her intracranial venous system as well as a CTA of her head, all which were normal with the exception of an extraaxial mass identified with MRI of the brain. An echocardiogram was performed as the patient reported that she has had difficulty lying flat for many months and this echocardiogram did not identify any underlying cardiac disease, although was notable for an incidentally identified small mass subphrenic on the side of the liver, which will need further imaging as an outpatient. The patient was seen in conjunction with Neurology as the patient had dysmetria of her left hand that was not consistent with her lower extremities as she did not have dysmetria with her [id number]. She was monitored for additional day. Her dysmetria did resolve. She was noted to be dizzy particularly with walking. Presumptive diagnosis of BPPV was made in association with Neurology. She was started on meclizine with much improvement in her vertiginous symptoms, complete resolution of her visual symptoms. She was started on fluticasone. She relayed nasal congestion preceding the development of her headaches. She did feel the fluticasone nasal spray did improve her nasal congestion. At the time of discharge, she no longer had headache or visual symptoms. Her vertigo was largely controlled. She was able to ambulate independently. During the course of her hospital stay, she was newly diagnosed with diabetes, hypertension, and hyperlipidemia. She was seen in conjunction with Endocrinology and she was discharged with medication regimen as indicated above and she is to be seen back by Dr. Fitzgerald in 2 weeks' time. Appropriate medications were sent to [facility]. The patient was also started on lisinopril 10 mg for newly diagnosed hypertension, systolics 170s/90s in the emergency room, improved to 131/76 at the time of discharge. At followup, please: 1. Please evaluate bilateral ears as the patient did have some retraction on the right side in conjunction with her sinus congestion. 2. The patient will need additional followup for echogenic subphrenic mass seen on echocardiogram that may potentially reside in the liver. 3. Titrate medications appropriately for newly diagnosed hypertension, hyperlipidemia, and diabetes. Ensure the patient follows up with Endocrinology. 4. The patient may benefit from referral to nutritional counseling services. 5. Continue to monitor for resolution of left arm dysmetria, which is resolved at the time of this discharge. Reasons to return to the hospital including, but not limited to recurrent or worsening symptoms including recurrent or worsening headaches, nausea, vomiting , lightheadedness, loss of consciousness or near loss of consciousness, chest pain, shortness of breath, inability to obtain or tolerate medications were discussed at length with the patient and her . They acknowledged understanding. TIME SPENT: Greater than 60 minutes was spent on the discharge of the patient, greater than half was spent [id number] with the patient and her . [id number]/[facility] #: [id number] CELSO
== END 2019-03-29 16:30 | disposition home or self-care (01) | DRG 111 ==
LOC: ED 12:48 → MEDTELE 16:03 → OBSVTOIN 03-28 11:00
PROVIDERS: ADMIT Hospitalist; ATTEND Internal Medicine
DX: H81.10 Benign paroxysmal vertigo, unspecified ear (principal); E11.9 Type 2 diabetes mellitus without complications; I10 Essential (primary) hypertension; E78.5 Hyperlipidemia, unspecified; R51 Headache; Z88.0 Allergy status to penicillin
CPT/HCPCS: 36415; 70450; 70496; 70498; 70544; 70551; 71045; 80048; 80053; 80061; 83036; 83880; 85025; 85610; 85652; 86140; 93306; 96374; 96375; 99284; A9270-GY; G0378; J0780; J1200; J1650; Q9967